=== PATIENT | male | born 1950 | race Caucasian/White ===

== ENCOUNTER 2017-11-16 19:28 | Emergency (ER) | payer OTHER ==
[~2017-11-16] VITALS: Ht 160 cm; Wt 72.2 kg
[2017-11-16 19:33] VITALS: TEMP 36.5; Ht 160 cm; Wt 72.2 kg
[2017-11-16 20:47] LABS: BASO % 0.1 %; BASO ABS # 0.01 K/uL (0-0.2); EOS % 0.1 %; EOS ABS # 0.01 K/uL (0-0.5); HEMATOCRIT 44.6 % (42-52); HEMOGLOBIN 15.7 g/dL (14.0-18.0); IG# 0.03 K/uL (0.00-0.02); LYMPH % 10.2 %; LYMPH ABS # 1.36 K/uL (1.2-3.4); MEAN CELL VOLUME 90.5 fL (80-100); MEAN CORPUSCULAR HEMOGLOBIN 31.8 pg (25-34); MEAN CORPUSCULAR HGB CONC 35.2 g/dl (32-36); MEAN PLATELET VOLUME 9.8 fL (7.4-10.4); MONO ABS # 0.54 K/uL (0.11-0.59); NEUT % 85.4 %; PLATELET COUNT 190 K/uL (130-400); RED CELL DISTRIBUTION WIDTH CV 12.3 % (11.5-14.5); WHITE BLOOD COUNT 13.35 K/uL (4.8-10.8)
[2017-11-16] MEDS ORDERED: ONDANSETRON INJ 2 MG/ML 2 ML VIAL IV STA ×2 (20:47→22:00)
[2017-11-16] MEDS ORDERED: MoRPHine SULFATE 10 MG/ML CARP/VIAL IV STA (20:47)
[2017-11-16 21:07] LABS: ALBUMIN 4.3 gm/dl (3.4-5.0); CALCIUM 9.3 mg/dl (8.5-10.1); CREATININE 1.09 mg/dl (0.60-1.40); POTASSIUM 3.9 mmol/L (3.5-5.1); TOTAL PROTEIN 7.8 gm/dl (6.4-8.2)
--- NOTE | 2017-11-16 21:20 | DIAGNOSTIC IMAGING REPORT ---
CT SCAN OF THE ABDOMEN AND PELVIS WITHOUT CONTRAST CLINICAL HISTORY: Right lower quadrant pain and hematuria COMPARISON STUDY: No previous studies for comparison. TECHNIQUE: CT scan of the abdomen and pelvis was performed from the lung bases to the proximal femurs. Images are reviewed in the axial, sagittal, and coronal planes. IV contrast was not administered for this examination. A dose lowering technique was utilized adhering to the principles of ALARA. CT DOSE: 891.13 mGy.cm FINDINGS: Lower chest: There is a partially visualized 3 mm right middle lobe pulmonary nodule. Liver: The unenhanced liver is normal in size, contour, and attenuation. There is no intrahepatic biliary ductal dilatation. Gallbladder: Surgically absent Spleen: Normal in size and attenuation. Pancreas: Unremarkable. Adrenal glands: Unremarkable. Kidneys: There is right-sided hydronephrosis and perinephric fluid suggestive of a forniceal rupture. There is right ureteral dilatation. There is a 2 mm calculus at the level of the right ureterovesical junction the bladder is relatively decompressed which explains its mildly thickened wall. Bowel: There are no transition zones indicate bowel obstruction. The appendix appears normal. Fluid-filled small bowel loops may reflect a mild ileus. There is no acute diverticulitis. Peritoneum: There is no intraperitoneal free air or abdominal ascites. Vasculature: The abdominal aorta is normal in course and caliber. Adenopathy: None. Pelvic viscera: The prostate is enlarged measuring 49 mm transversely. Skeletal structures: Degenerative changes are present within the SI joints. There are few tiny sclerotic lesions which likely represent bone islands. IMPRESSION: 1. 2 mm obstructing calculus at the level of the right ureterovesical junction. Electronically signed by: Vern Garland M.D. 11/16/2017 9:19 PM Dictated Date/Time: 11/16/2017 9:14 PM
--- NOTE | 2017-11-16 21:33 | EMERGENCY ROOM VISIT NOTE ---
ED Visit Note First contact with patient: 19:36 Staff note: I have reviewed the Patients chart and have discussed this case with my PA. I generally agree with the ED note and findings.
[2017-11-16] MEDS ORDERED: OXYCODONE IR HOME PACK PO ONE (21:45)
[2017-11-16] MEDS ORDERED: ONDANSETRON HOME PACK 4MG OD TAB PO ONE (21:45)
[2017-11-16] MEDS ORDERED: TAMSULOSIN HCL 0.4 MG CAP PO ONE (21:45)
[2017-11-16] MEDS ORDERED: ONDA4TAB10 SL (22:01)
[2017-11-16] MEDS ORDERED: TAMS0.4C38 PO (22:01)
[2017-11-16] MEDS ORDERED: OXYC1TAB3 PO (22:01)
--- NOTE | 2017-11-16 22:05 | EMERGENCY ROOM VISIT NOTE ---
History First contact with patient: 19:36 Chief Complaint: ABDOMINAL PAIN Stated Complaint: SHARP PAIN IN STOMACH Nursing Triage Summary: pt reported increasing pain in right lower quadrant starting around 1200 today. went to acute care and was sent here for evaluation of appendix. Pt reports nausea/vomiting. Denies any trouble urinating or moving his bowels. denies trauma. History of Present Illness The patient is a 67 year old male who presents to the Emergency Room with complaints of right lower quadrant abdominal pain which started approximately 7 hours ago. The patient states that he was sitting down at home when his pain started. He states it is a sharp pain in his right lower abdomen. He reports it has been painful to sit or lie down since it started. He rates the discomfort a 10/10 and states it is constant. He denies any pain in the back or radiation of the pain into the groin. He does note he had some mild burning when he gave his urine sample. He has been nauseous and did vomit up a small amount of bile. He denies any changes in his bowel movements, blood in his urine or fevers. He has taken 800 mg ibuprofen without relief of symptoms. He denies any history of similar episodes. He denies any history of kidney stones. Review of Systems A complete 10 point review of systems was reviewed with the patient with pertinent positives and negatives as per history of present illness. All else were negative. Past Medical/Surgical History Medical Problems: (1) Cardiac disease (2) COPD (chronic obstructive pulmonary disease) Surgical Problems: (1) History of cholecystectomy Social History Smoking Status: Current Every Day Smoker Marital Status: Housing Status: lives with family Current/Historical Medications Scheduled Ondasetron Odt (Zofran Odt), 4 MG SL Q6H Tamsulosin Hcl (Flomax), 0.4 MG PO DAILY Scheduled PRN Oxycodone Ir (Roxicodone Ir), 1-2 TAB PO Q4H PRN for Pain Physical Exam Vital Signs Date Time Temp Pulse Resp B/P (MAP) Pulse Ox O2 Delivery O2 Flow Rate FiO2 11/16/17 22:30 61 16 144/82 96 11/16/17 20:35 53 14 166/82 97 Room Air 11/16/17 19:33 36.5 48 20 156/84 98 Room Air Physical Exam VITALS: Vitals are noted on the nurse's note and reviewed by myself. GENERAL: This is a 67-year-old male, in no acute distress but uncomfortable appearing, well-developed well-nourished. SKIN: The skin was without rashes. MOUTH: Mucous membranes moist. NECK: Supple without nuchal rigidity. HEART: Regular rate and rhythm without murmurs gallops or rubs. LUNGS: Clear to auscultation bilaterally without wheezes, rales or rhonchi. ABDOMEN: Positive bowel sounds x 4. Soft, moderate tenderness in the right lower quadrant. No CVA tenderness. NEURO: Patient was alert and oriented to person place and time. Medical Decision & Procedures ER Provider Diagnostic Interpretation: CT SCAN OF THE ABDOMEN AND PELVIS WITHOUT CONTRAST FINDINGS: Lower chest: There is a partially visualized 3 mm right middle lobe pulmonary nodule. Liver: The unenhanced liver is normal in size, contour, and attenuation. There is no intrahepatic biliary ductal dilatation. Gallbladder: Surgically absent Spleen: Normal in size and attenuation. Pancreas: Unremarkable. Adrenal glands: Unremarkable. Kidneys: There is right-sided hydronephrosis and perinephric fluid suggestive of a forniceal rupture. There is right ureteral dilatation. There is a 2 mm calculus at the level of the right ureterovesical junction the bladder is relatively decompressed which explains its mildly thickened wall. Bowel: There are no transition zones indicate bowel obstruction. The appendix appears normal. Fluid-filled small bowel loops may reflect a mild ileus. There is no acute diverticulitis. Peritoneum: There is no intraperitoneal free air or abdominal ascites. Vasculature: The abdominal aorta is normal in course and caliber. Adenopathy: None. Pelvic viscera: The prostate is enlarged measuring 49 mm transversely. Skeletal structures: Degenerative changes are present within the SI joints. There are few tiny sclerotic lesions which likely represent bone islands. IMPRESSION: 1. 2 mm obstructing calculus at the level of the right ureterovesical junction. Laboratory Results 11/16/17 20:30 Red Blood Count 4.93, Mean Corpuscular Volume 90.5, Mean Corpuscular Hemoglobin 31.8, Mean Corpuscular Hemoglobin Concent 35.2, Mean Platelet Volume 9.8, Neutrophils (%) (Auto) 85.4, Lymphocytes (%) (Auto) 10.2, Monocytes (%) (Auto) 4.0, Eosinophils (%) (Auto) 0.1, Basophils (%) (Auto) 0.1, Neutrophils # (Auto) 11.40, Lymphocytes # (Auto) 1.36, Monocytes # (Auto) 0.54, Eosinophils # (Auto) 0.01, Basophils # (Auto) 0.01 11/16/17 20:30 Test 11/16/17 16:55 11/16/17 20:30 Urine Color YELLOW Urine Appearance CLEAR (CLEAR) Urine pH 5.0 (4.5-7.5) Urine Specific Rough And Ready 1.025 (1.000-1.030) Urine Protein TRACE (NEG) Urine Glucose (UA) NEG (NEG) Urine Ketones TRACE (NEG) Urine Occult Blood 3+ (NEG) Urine Nitrite NEG (NEG) Urine Bilirubin NEG (NEG) Urine Urobilinogen NEG (NEG) Urine Leukocyte Esterase NEG (NEG) Urine WBC (Auto) 1-5 /hpf (0-5) Urine RBC (Auto) 10-30 /hpf (0-4) Urine Hyaline Casts (Auto) 0 /lpf (0-5) Urine Epithelial Cells (Auto) 0-5 /lpf (0-5) Urine Bacteria (Auto) NEG (NEG) Urine Crystals CALCIUM OXALATE (NONE White Blood Count 13.35 K/uL (4.8-10.8) Red Blood Count 4.93 M/uL (4.7-6.1) Hemoglobin 15.7 g/dL (14.0-18.0) Hematocrit 44.6 % (42-52) Mean Corpuscular Volume 90.5 fL (80-100) Mean Corpuscular Hemoglobin 31.8 pg (25-34) Mean Corpuscular Hemoglobin Concent 35.2 g/dl (32-36) Platelet Count 190 K/uL (130-400) Mean Platelet Volume 9.8 fL (7.4-10.4) Neutrophils (%) (Auto) 85.4 % Lymphocytes (%) (Auto) 10.2 % Monocytes (%) (Auto) 4.0 % Eosinophils (%) (Auto) 0.1 % Basophils (%) (Auto) 0.1 % Neutrophils # (Auto) 11.40 K/uL (1.4-6.5) Lymphocytes # (Auto) 1.36 K/uL (1.2-3.4) Monocytes # (Auto) 0.54 K/uL (0.11-0.59) Eosinophils # (Auto) 0.01 K/uL (0-0.5) Basophils # (Auto) 0.01 K/uL (0-0.2) RDW Standard Deviation 41.0 fL (36.4-46.3) RDW Coefficient of Variation 12.3 % (11.5-14.5) Immature Granulocyte % (Auto) 0.2 % Immature Granulocyte # (Auto) 0.03 K/uL (0.00-0.02) Anion Gap 7.0 mmol/L (3-11) Est Creatinine Clear Calc Drug Dose 58.6 ml/min Estimated GFR () 81.0 Estimated GFR (Non- 69.9 BUN/Creatinine Ratio 16.1 (10-20) Calcium Level 9.3 mg/dl (8.5-10.1) Total Bilirubin 0.6 mg/dl (0.2-1) Aspartate Amino Transf (AST/SGOT) 24 U/L (15-37) Alanine Aminotransferase (ALT/SGPT) 23 U/L (12-78) Alkaline Phosphatase 68 U/L (45-117) Total Protein 7.8 gm/dl (6.4-8.2) Albumin 4.3 gm/dl (3.4-5.0) Globulin 3.5 gm/dl (2.5-4.0) Albumin/Globulin Ratio 1.2 (0.9-2) Medications Administered Medications (Trade) Dose Ordered Sig/Ascencion Route Start Time Stop Time Status Last Admin Dose Admin Morphine Sulfate (MoRPHine SULFATE INJ) 6 mg NOW STAT IV 11/16/17 20:47 11/16/17 20:48 DC 11/16/17 20:54 6 MG Ondansetron HCl (Zofran Inj) 4 mg NOW STAT IV 11/16/17 20:47 11/16/17 20:48 DC 11/16/17 20:53 4 MG Ondansetron HCl (ZOFRAN ODT 4MG Home Pack) 1 homepack UD ONCE PO 11/16/17 21:45 11/16/17 21:46 DC 11/16/17 22:23 1 HOMEPACK Oxycodone HCl (Roxicodone Immediate Rel 5MG Home Pack) 1 homepack UD ONCE PO 11/16/17 21:45 11/16/17 21:46 DC 11/16/17 22:23 1 HOMEPACK Tamsulosin HCl (Flomax Cap) 0.4 mg NOW ONCE PO 11/16/17 21:45 11/16/17 21:46 DC 11/16/17 22:22 0.4 MG Ondansetron HCl (Zofran Inj) 4 mg NOW STAT IV 11/16/17 22:00 11/16/17 22:01 DC 11/16/17 22:22 4 MG ED Course The patient was evaluated as above. Labs were drawn and IV access was obtained. Patient was medicated with 6 mg's morphine IV and [address] of the abdomen and pelvis was performed and read by radiology as above. Case was discussed with Dr. White due to the forniceal rupture. He states that this is not concerning the patient can follow-up in the office. Patient was reevaluated and treatment plan discussed. The patient states he is feeling much better but is slightly nauseous and requested an additional dose of Zofran. 4 mg Zofran was ordered. Home packs were ordered. Discharge instructions were reviewed with the patient. The patient verbalized understanding of my assessment and treatment plan and was discharged home in good condition. Medical Decision Differential diagnosis includes kidney stone, pyelonephritis, appendicitis, musculoskeletal pain, diverticulitis, bowel obstruction, among others. The patient is a 67-year-old male who presents today complaining of right lower quadrant abdominal pain. Labs revealed mild leukocytosis of 13,000, possibly secondary to stress/pain. BUN and creatinine were within normal limits. Urinalysis showed 3+ blood and was not indicative of infection. CT showed a 2 mm stone in the UVJ. This also did show perinephric stranding and evidence of forniceal rupture. I did discuss the case with urology due to this finding. They state that this finding is not emergent and the patient can follow-up in the office. Patient was given prescriptions for OxyIR, Zofran and Flomax. The patient was independently evaluated by Dr. Layne, ED attending physician, who agreed with my assessment and treatment plan. Based on the patient's presentation and work up, I feel the patient is stable for outpatient treatment. The patient was educated to return to the emergency department for any worsening of their current condition or new/concerning symptoms. He will follow up with urology. [place] Drug Monitoring Program Search Results: patient reviewed within database Medication Reconcilliation Current Medication List: was personally reviewed by me Blood Pressure Screening Patient's blood pressure: Elevated blood pressure Blood pressure disposition: Elevated BP felt to be situational Impression Primary Impression: Kidney stone Departure Information Dispostion Home / Self-Care Condition GOOD Prescriptions Tamsulosin Hcl (FLOMAX) 0.4 Mg Cap 0.4 MG PO DAILY for 10 Days, #10 CAP Prov: Esperanza Freed PA-C 11/16/17 Ondasetron Odt (ZOFRAN ODT) 4 Mg Tab 4 MG SL Q6H for Nausea, #15 TAB Prov: Esperanza Freed PA-C 11/16/17 Oxycodone Ir (Roxicodone Ir) 5 Mg Tab 1-2 TAB PO Q4H Y for Pain, #20 TAB For Initial Treatment Prov: Esperanza Freed PA-C 11/16/17 Referrals Lemuel Mcguire D.O. (PCP) Tommie White M.D. Patient Instructions My [facility] Additional Instructions You have been treated in the Emergency Department today for a Kidney Stone ( Nephrolithiasis). You have received pain medicine in the emergency department which impairs your ability to operate a vehicle. It is illegal for you to drive after receiving these medicines. You have been prescribed OxyIR to be used for pain control. This is a narcotic medication. You cannot drive or consume alcohol while on this medicine. This medicine should only be used for pain that cannot be controlled with over-the- counter pain medicines. You have been prescribed Zofran to be used for any nausea or vomiting. Take as prescribed. You have been prescribed Flomax 0.4 mg to be taken ONCE daily. This medicine has been prescribed as it can help relax the smooth muscles of the urinary tract increasing transit time of the kidney stone. For pain control, you can use the following [id number] medicines (if >12 yo): - Regular strength (325mg/tab) Tylenol (acetaminophen) 2 tabs every 4-6 hours as needed. Do not exceed 12 tablets in a 24 hour period. Avoid taking more than 4 grams (4000 mg) of Tylenol per day. This includes any other sources of acetaminophen you may take on a regular basis. - Regular strength (200 mg/tab) Advil (ibuprofen) 1-2 tabs every 4-6 hours as needed. Do not exceed a dose of 3200 mg per day. You have been provided a strainer and specimen collection cup. You should strain your urine to collect any passed stones. Your stones can be placed into the specimen cup and taken to your Urologist for further evaluation. You have been provided the contact information for the on-call Urologist. You should contact the Urologist's office tomorrow to establish a follow-up appointment from today's Emergency Department visit. Return to the Emergency Department if your symptoms persist despite the treatment plan outlined above or if you develop the following symptoms: intractable pain, fever, chills, or large amounts of blood in your urine.
[2017-11-16 22:30] VITALS: BP 144/82; PULSE 61; O2SAT 96
== END 2017-11-16 22:35 | disposition home or self-care (01) ==
LOC: C.EDB 19:31 → C.EDC 22:35
DX: N20.0 Calculus of kidney (principal); I51.9 Heart disease, unspecified; J44.9 Chronic obstructive pulmonary disease, unspecified; F17.210 Nicotine dependence, cigarettes, uncomplicated

== ENCOUNTER 2020-07-29 06:11 | Inpatient (IN) ==
--- NOTE | 2020-07-21 16:25 | Anesthesiology Consultation ---
Date of Service July 21, 2020 Assessment & Plan (1) Encounter for pre-operative examination: Case was scheduled for 07/13/20, and patient seen in PAT by Winnie Laboy on 06/27/20. Due to COVID-19 surge capacity protocols, case canceled and R/S with new V#. At time of cancelation, chart was pending surgeon-ordered PCP and cardiology clearances. Will need to obtain notes. COVID Status: As of 07/21 nurse assessment, patient denies travel to endemic area, known exposure/sick contacts, or symptoms of COVID19. Preoperative COVID19 testing to be completed on 07/22. Chart Review Chart Review: Acceptable Risk for Surgery (pending surgeon ordered cardio and pcp clearances) History Surgery Operation Date: 07/29/20 09:20 Proposed Procedures p L4-S1 Decompression and Fusion, Spinal Cord Monitoring - Melecio Bruno, Height/Weight Height: 5 ft 3 in Weight: 72.575 kg Allergies Allergy/AdvReac Type Severity Reaction Status Date / Time No Known Allergies Allergy Verified 07/21/20 14:48 Medications Home Medications Medication Instructions Recorded Confirmed Last Taken albuterol sulfate 0.63 mg INHALATION Q4H PRN 06/10/20 07/21/20 Unknown ascorbic acid (vitamin C) [Vitamin 500 mg PO BID 06/10/20 07/21/20 Unknown C] aspirin [Aspir-81] 81 mg PO QAM 06/10/20 07/21/20 Unknown carvedilol 3.125 mg PO BID 06/10/20 07/21/20 Unknown clopidogrel 75 mg PO QAM 06/10/20 07/21/20 Unknown fluticasone propion-salmeterol 1 inh INHALATION BID 06/10/20 07/21/20 Unknown [Wixela Inhub] losartan 100 mg PO QAM 06/10/20 07/21/20 Unknown pantoprazole 20 mg PO QAM 06/10/20 07/21/20 Unknown simvastatin 80 mg PO PM 06/10/20 07/21/20 Unknown Past Medical History Medical History (Updated 07/21/20 @ 16:15 by Ravi Apodaca) CAD (coronary artery disease) 2008 to LAD COPD (chronic obstructive pulmonary disease) Breathing stable and controlled DDD (degenerative disc disease) GERD (gastroesophageal reflux disease) diet controlled Heme + stool Reports recent heme + stool sample for pcp -- was to follow up with PCP on 06/30, unsure if done. History of cardiac murmur as a child No murmur noted at PAT appt 06/27 HTN (hypertension) Hyperlipemia Spinal stenosis Past Family History Family History Other No family history of adverse response to anesthesia Past Surgical History Surgical History H/O heart artery stent x 1 (2008) History of cardiac catheterization 2008 [facility] - - 1 stent placed - follows with Dr. Wilkins 2013 - [facility] - no stents/angioplasty History of carpal tunnel release of both wrists History of cholecystectomy History of colonoscopy History of esophagogastroduodenoscopy (EGD) Social History Smoking Status: Current every day smoker tobacco type: cigarettes Smoking cigarettes per day: 3-4 cigs per day Do You Dip or Chew Tobacco: No Hx Alcohol Use: Yes Alcohol type: beer alcohol intake frequency: a few times a month Hx Substance Use: No substance use type: does not use Testing Laboratory Results 06/27/20 WBC: 7.43 H/H: 14.5/43.6 PLATELETS: 208 SODIUM: 142 POTASSIUM: 5.0 CHLORIDE: 111 CO2: 29 BUN: 13 CREATININE: 0.75 GLUCOSE: 100 PT: 10.1 PTT: 27.1 INR: 1.0 UA: 3+ occult blood, 10-30 RBC/hpf, + calcium oxalate crystals (patient to see PCP for clearance, will fax results for their review) TYPE AND SCREEN: A+, antibody negative Electrocardiogram Date: 06/27/20 Findings: + NSR @ (62bpm) Chest X-Ray Date: 06/27/20 Findings: + NAD Other Testing Echocardiogram Date: 11/10/18 EF: 55% LV Function: normal RWMA: + none Dense sclerotic changes involving both aortic and mitral valve leaflets. Trace to mild MR and TR. Stress Test Date: 12/23/19 Type: nuclear Normal myocardial perfusion SPECT images without evidence for pharmacologically induced ischemia. Normal left ventricular wall motion and thickening. Normal left ventricular ejection fraction of post-stress at 57%.
[~2020-07-29 06:11] MED LIST: ACETAMINOPHEN 500 MG TAB PO SCH; CeleBREX 200 MG CAP PO SCH; GABAPENTIN 300 MG CAP PO SCH; LR 15ML/HR IV SCH; ceFAZolin 1000MG 1,000 MG/7.5 ML SYR IV SCH
[2020-07-29] MEDS ORDERED: ONDANSETRON INJ 2 MG/ML 2 ML VIAL IV PRN ×2 (07:04→11:30)
[2020-07-29] MEDS ORDERED: ATROPINE SULFATE 0.1 MG/ML 10ML SYR IV PRN (07:04)
[2020-07-29] MEDS ORDERED: fentaNYL citrate 100 MCG/2 ML VIAL IV PRN (07:04)
[2020-07-29] MEDS ORDERED: ePHEDrine sulfate 50 MG/ML AMP IV PRN (07:04)
[2020-07-29] MEDS ORDERED: BACITRACIN INJ 50,000 UNIT VIAL ONE (07:11)
[2020-07-29] MEDS ORDERED: BUPIVACAINE/EPINEPHRINE 0.5% MPF 1:200,000 30 ML VIAL ONE (07:11)
[2020-07-29] MEDS ORDERED: MIDAZOLAM HCL 1 MG/ML 2ML VIAL ONE (07:12)
[2020-07-29] MEDS ORDERED: PROPOFOL IV EMULSION 10 MG/ML 20 ML VIAL IV ONE (07:12)
[2020-07-29] MEDS ORDERED: ONDANSETRON INJ 2 MG/ML 2 ML VIAL ONE ×2 (07:12→10:16)
[2020-07-29] MEDS ORDERED: LIDOCAINE HCL 2% 2 ML VIAL/AMP(20MG/ML) INFIL ONE (07:12)
[2020-07-29] MEDS ORDERED: fentaNYL citrate 100 MCG/2 ML VIAL ONE ×2 (07:12→09:18)
--- NOTE | 2020-07-29 07:27 | History & Physical Bridge Note ---
Date of Service July 29, 2020 History & Physical Bridge Note I have examined the patient, reviewed the History & Physical and in the interval since the performance of the History & Physical I have noted the following changes of clinical significance: no changes noted
--- NOTE | 2020-07-29 07:28 | History & Physical Report ---
Date of Service July 29, 2020 Assessment & Plan (1) Neurogenic claudication due to lumbar spinal stenosis: Admission and Anticipated Discharge Date Admission Date: L4-S1 decompression fusion History of Present Illness Chief Complaint: Back and leg pain Primary Care Provider: Lemuel Mcguire DO This is a 70-year-old male presents with chronic persistent back and leg pain. After failing course of nonoperative care is here for surgical invention. Allergies Allergy/AdvReac Type Severity Reaction Status Date / Time No Known Allergies Allergy Verified 07/29/20 06:41 Home Medications Medication Instructions Recorded Confirmed Type albuterol sulfate 0.63 mg INHALATION Q4H PRN 06/10/20 07/29/20 History ascorbic acid (vitamin C) [Vitamin 500 mg PO BID 06/10/20 07/29/20 History C] aspirin [Aspir-81] 81 mg PO QAM 06/10/20 07/29/20 History carvedilol 3.125 mg PO BID 06/10/20 07/29/20 History clopidogrel [Plavix] 75 mg PO QAM 06/10/20 07/29/20 History fluticasone propion-salmeterol 1 inh INHALATION BID 06/10/20 07/29/20 History [Wixela Inhub] losartan 100 mg PO QAM 06/10/20 07/29/20 History pantoprazole 20 mg PO QAM 06/10/20 07/29/20 History simvastatin 80 mg PO PM 06/10/20 07/29/20 History Past Med/Surg History Medical History (Updated 07/29/20 @ 07:28 by Melecio Bruno DO) CAD (coronary artery disease) 2008 to COPD (chronic obstructive pulmonary disease) Breathing stable and controlled DDD (degenerative disc disease) GERD (gastroesophageal reflux disease) diet controlled Heme + stool Reports recent heme + stool sample for pcp -- was to follow up with PCP on 06/30, unsure if done. History of cardiac murmur as a child No murmur noted at PAT appt 06/27 HTN (hypertension) Hyperlipemia Spinal stenosis Surgical History H/O heart artery stent x 1 (2008) History of cardiac catheterization 2008 [facility] - - 1 stent placed - follows with Dr. Wilkins 2013 - [facility] - CP - no stents/angioplasty History of carpal tunnel release of both wrists History of cholecystectomy History of colonoscopy History of esophagogastroduodenoscopy (EGD) Family History Other No family history of adverse response to anesthesia Social History Smoking Status: Current every day smoker Cigarettes Per Day: 3-4 cigs per day; Second Hand Exposure: No; Do You Dip or Chew Tobacco: No; Tobacco Cessation Education Requested by Patient: No Hx Alcohol Use: Yes Alcohol type: beer Hx Substance Use: No Preferred Language: Frisian Communication Ability: Effective 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
[2020-07-29] MEDS ORDERED: ROCURONIUM BROMIDE 10 MG/ML 5 ML VIAL IV ONE ×2 (08:08→09:15)
[2020-07-29] MEDS ORDERED: DEXAMETHASONE SOD INJ 4 MG/ML VIAL ONE (09:11)
[2020-07-29] MEDS ORDERED: GLYCOPYRROLATE 0.2 MG/ML VIAL ONE (09:23)
[2020-07-29] MEDS ORDERED: NEOSTIGMINE METHYLSULFATE 1 MG/ML 10ML VIAL ONE (09:23)
[2020-07-29] MEDS ORDERED: FLOSEAL HEMOSTATIC MATRIX 10ML TOP ONE (10:07)
--- NOTE | 2020-07-29 10:12 | Operative Report ---
Post Operative Report Pre & Post Diagnosis Operation Date: 07/29/20 07:45 Pre-Op Diagnosis: Thoracolumbar and Lumbosacral Disc Disorder L4-S1 Post-Op Diagnosis: Thoracolumbar and Lumbosacral Disc Disorder L4-S1 I identified the patient and participated in the time-out.: Yes Procedure Operation Date: 07/29/20 07:45 Actual Procedures #1 lumbar decompression with bilateral medial facetectomies and foraminotomies L3-4, L4-5 and L5-S1. #2 posterior spinal fusion L4-5 L5-S1. #3 placement posterior instrumentation L4-5 L5-S1. #4 interbody fusion L4-5 and L5-S1. #5 placement peek cage 9 x 26 mm at L4-5 and L5-S1. #6 placement of locally harvested morselized autograft in the posterior lateral gutters. #7 placement infuse collagen sponge, master graft in the posterior lateral gutters and osteopenic body space. Surgeon Melecio Bruno, Heavy Forger Helper Sandor Lemus Estimated Blood Loss 200 Findings Consistent with Post-Op Diagnosis Specimens None Indications This is a 70-year-old male who presents with above-mentioned diagnosis after failing course of nonoperative care is here for the above-mentioned seizure. Description of Procedure Patient was met with identified informed consent obtained. Patient was then taken to the operative suite underwent intubation placed in a prone position the Rashi table on top Nacho frame. All bony prominences well-padded eyes inspected to ensure no external pressure placed upon the. This point the lumbar spine was prepped and draped in normal sterile fashion. Sharp dissection with the assistance of Bovie cautery was performed down to and exposing the lamina transverse processes of L4-L5 and sacral ala bilaterally. From a caudal cephalad fashion going up the L5 laminectomy of L4 and partial laminectomy of L3 was performed including bilateral medial facetectomies and foraminotomies addressing severe spinal stenosis. I found far lateral disc herniation at L4-5 on the right as well. After complete decompression pedicle screws were then placed in L4 and L5 and S1 levels bilaterally with assistance of fluoroscopy and appropriate size tha placed. By way of a transforamen approach on the right complete discectomy L5-S1 was performed endplates curetted to subcortical bleeding bone and 9 x 26 mm peek cage filled with osteobone graft tapped in position. Then proceeded to L [address] of a transforaminal approach on the right a complete discectomy was performed endplates curetted to subcortical being bone and a 9 x 26 mm peek cage filled with osteobone graft tapped in position. The rods were then locked in final position bilaterally. Transverse processes of L4-L5 and sacral ala burred to subcortical bleeding bone. Infuse collagen sponge master graft local autograft was placed in the posterior lateral gutters. 15 round LUCY drain inserted. The incision was then closed with 1 Vicryl in the fascia 2-0 Vicryl subcutaneously and 4 Monocryl for final skin closure. Steri-Strip sterile dressings placed. Patient waken taken to PACU stable condition. Please note spinal cord monitoring was utilized at the procedure no changes noted. Lastly Sandor Lemus was present at the entire surgery involved the patient positioning complex portions of the surgery and final skin closure. I attest to the content of the Intraoperative Record and any orders documented therein. Any exceptions are noted below.
--- NOTE | 2020-07-29 11:16 | Fluoroscopy Report ---
INTRAOPERATIVE RADIOGRAPHS CLINICAL HISTORY: L4-S1 spinal fusion. Fluoroscopy time: 22 seconds. FINDINGS: 2 spot fluoroscopic views of the lumbar spine are presented. There has been discectomy at L 4-L5 and L5-S1 with laminectomy and posterior fusion from L4-S1. Interpedicular screws are present at all levels. The orthopedic hardware appears intact. IMPRESSION: Intraoperative images from L4-S1 spinal fusion as above. Electronically signed by: Epsinoza Martinez M.D. 07/29/2020 11:15 AM
[2020-07-29] MEDS ORDERED: ACETAMINOPHEN 1,000 MG/100 ML VIAL IV PRN (11:30)
[2020-07-29] MEDS ORDERED: hydrOXYzine HCl 25 MG TAB PO PRN (11:30)
[2020-07-29] MEDS ORDERED: ALUMINUM/MAGNESIUM SUSP 30 ML UDC PO PRN (11:30)
[2020-07-29] MEDS ORDERED: LORazepam 0.5 MG TAB PO PRN (11:30)
[2020-07-29] MEDS ORDERED: PROMETHAZINE HCL 12.5 MG in SODIUM CHLORIDE 0.9% 50 ML IV PRN (11:30)
[2020-07-29] MEDS ORDERED: DO NOT ADMINISTER PNEUMOCOCCAL VACCINE PRN (11:30)
[2020-07-29] MEDS ORDERED: HYDROmorphone INJ 0.5 MG/0.5 ML SYR IV PRN (11:30)
[2020-07-29] MEDS ORDERED: diphenhydrAMINE Capsule 25 MG CAP PO PRN (11:30)
[2020-07-29] MEDS ORDERED: DO NOT ADMINISTER FLU VACCINE PRN (11:30)
[2020-07-29] MEDS ORDERED: oxyCODONE HCL IR 5 MG TAB (IMMEDIATE RELEASE) PO PRN (11:30)
[2020-07-29] MEDS ORDERED: METOCLOPRAMIDE HCL INJ 5 MG/ML 2 ML VIAL IV PRN (11:30)
[2020-07-29] MEDS ORDERED: HYDROmorphone INJ 1 MG/ML SYRINGE IV PRN (11:30)
[2020-07-29] MEDS ORDERED: SOD PHOSPHATE/SOD BIPHOSPHATE ENEMA 132 ML BTL PR PRN (11:30)
[2020-07-29] MEDS ORDERED: ONDANSETRON 4 MG OD TAB PO PRN (11:30)
[2020-07-29] MEDS ORDERED: FAMOTIDINE 20 MG TAB PO PRN (11:30)
[2020-07-29] MEDS ORDERED: MAGNESIUM HYDROXIDE SUSP 30 ML UDC PO PRN (11:30)
[2020-07-29] MEDS ORDERED: NALOXONE HCL 0.4 MG/1 ML VIAL/CARP IV PRN (11:30)
[2020-07-29] MEDS ORDERED: bisacodyL 10 MG SUPP PR PRN (11:30)
[2020-07-29] MEDS ORDERED: LORazepam 0.5 MG/1 ML VIAL IV PRN (11:30)
--- NOTE | 2020-07-29 11:30 | Anesthesiology Progress Note ---
Date of Service July 29, 2020 Anesthesia Post Procedure Vital Signs Vital Signs: Temp Pulse Pulse Resp BP Pulse Ox 07/29/20 11:15 97.2 F L 61 15 118/68 98 07/29/20 11:05 58 L 14 103/72 96 07/29/20 10:55 57 L 15 105/65 94 07/29/20 10:45 61 16 118/78 96 07/29/20 10:35 97.2 F L 74 18 131/79 97 07/29/20 06:51 98.1 F 83 20 162/91 H 97 Pain Intensity Back: Pain Intensity: 4 Transfer of Care Handoff Completed per policy Notes Mental Status: alert / awake / arousable and participated in evaluation Patient Amnestic to Procedure: Yes Nausea / Vomiting: adequately controlled Pain: adequately controlled Airway Patency, RR, SpO2: stable & adequate BP & HR: stable & adequate Hydration State: stable & adequate Anesthetic Complications: no major complications apparent and Pt Satisfied with anesthetic care
[2020-07-29] MEDS ORDERED: ALBUTEROL 0.083% NEBU SOLN 3 ML VIAL INH PRN (11:43)
[2020-07-29] MEDS: SODIUM CHLORIDE 0.9% 1000ML 1,000 ML IV SCH ×2 (11:58→21:55)
--- NOTE | 2020-07-29 14:31 | Consultation ---
Date of Consultation July 29, 2020 Assessment & Plan (1) Status post lumbar surgery: Post op day# 0 S/P L4-S1 decompression and fusion by Dr Bruno EBL#200ml -pain management per ortho -wound management per ortho -PT/OT as appropriate -DVT prophylaxis per ortho -incentive spirometry -monitor H&H for acute blood loss anemia (2) CAD (coronary artery disease): S/P Stent to LAD in 2008 H/O negative stress test 11/2019 -No CP -Plavix on hold per ortho spine -Continue aspirin, carvedilol, statin (3) COPD (chronic obstructive pulmonary disease): Wheezing on exam. Pt reports baseline wheezing and denies SOB at this time. Pt reports using scheduled albuterol nebs TID and more often as needed, but hasn't felt need for as needed treatments recently -Continue scheduled albuterol nebs and prn -Continue home inhaler (4) HTN (hypertension): -Continue carvedilol, losartan (5) GERD (gastroesophageal reflux disease): -Continue PPI (6) Tobacco use: -Smoking cessation encouraged -Nicotine patch DVT Prophylaxis -SCDs per ortho Disposition per primary service Follows with Dr Mcguire in [place] for routine care Pt was seen and care coordinated with Dr Pollard. See addendum Supervising Physician Co-Signing Physician Notes Patient is a 70-year-old male with history of coronary artery disease, COPD, GERD, tobacco use and other medical problems was seen and examined after having lumbar decompression fusion surgery by Dr. Bruno. Patient is doing well postop. He denies any chest pain, shortness of breath, dizziness, nausea, abdominal pain. Back pain at surgical site is controlled. On exam patient is moderately built and nourished, no apparent distress, normocephalic atraumatic, lungs--decreased breath sounds, scattered wheezes, S1-S2, no murmur, no pedal edema, abdomen soft, nontender, back--surgical site in dressing,+ drain, alert, awake, oriented, grossly no focal deficits. Patient is consulted for postop medical management. Monitor for postop blood loss anemia with daily CBC. Continue bowel regimen to prevent constipation. Local wound care, DVT prophylaxis, pain control as per primary team. Resume Plavix as able once cleared by orthopedics. Respiratory status seems to be at baseline currently. Counseled to quit smoking. I personally reviewed the record. Patient is interviewed and examined at bedside. Patient's care is coordinated with Jennyfer Bray PA-C. Please refer to the documentation above for details of patient's presentation and for discussion of other issues. History of Present Illness Requesting Physician: Dr Bruno Reason for Consultation: Post op medical management Attending Physician: Melecio Bruno, DO History of Present Illness Pt is 70 y/o M with PMH CAD s/p stent LAD in 2008, HTN, HLD, COPD, GERD, tobacco use seen in medical consultation s/p L4 S1 decompression fusion today by Dr. Bruno. Postop patient reports doing well and reports has minimal pain. Denies any lower extremity pain or paresthesias. Patient reports has wheezing at baseline. He feels his breathing is currently "good" and is at his baseline. Has Aguirre cath in place. Denies fever/chills, diaphoresis, N/V/D/C, BEEBE, dizziness, syncope, vision changes, neck pain, CP, SOB, palpitations, cough, sore throat, choking, rhinorrhea, abdominal pain, paresthesias, extremity edema, rashes, urinary symptoms. Allergies Allergy/AdvReac Type Severity Reaction Status Date / Time No Known Allergies Allergy Verified 07/29/20 06:41 Home Medications Medication Instructions Recorded Confirmed Type albuterol sulfate 0.63 mg INHALATION Q4H PRN 06/10/20 07/29/20 History ascorbic acid (vitamin C) [Vitamin 500 mg PO BID 06/10/20 07/29/20 History C] aspirin [Aspir-81] 81 mg PO QAM 06/10/20 07/29/20 History carvedilol 3.125 mg PO BID 06/10/20 07/29/20 History clopidogrel [Plavix] 75 mg PO QAM 06/10/20 07/29/20 History fluticasone propion-salmeterol 1 inh INHALATION BID 06/10/20 07/29/20 History [Wixela Inhub] losartan 100 mg PO QAM 06/10/20 07/29/20 History pantoprazole 20 mg PO QAM 06/10/20 07/29/20 History simvastatin 80 mg PO PM 06/10/20 07/29/20 History Patient History Medical History CAD (coronary artery disease) 2009 to LAD COPD (chronic obstructive pulmonary disease) Breathing stable and controlled DDD (degenerative disc disease) GERD (gastroesophageal reflux disease) diet controlled Heme + stool Reports recent heme + stool sample for pcp -- was to follow up with PCP on 06/30, unsure if done. History of cardiac murmur as a child No murmur noted at PAT appt 06/27 HTN (hypertension) Hyperlipemia Spinal stenosis Tobacco use Surgical History (Updated 07/29/20 @ 14:38 by Jennyfer Bray PA-C) H/O heart artery stent x 1 (2008) History of cardiac catheterization 2008 [facility] - - 1 stent placed - follows with Dr. Wilkins 2013 - [facility] - no stents/angioplasty History of carpal tunnel release of both wrists History of cholecystectomy History of colonoscopy History of esophagogastroduodenoscopy (EGD) Family History Other No family history of adverse response to anesthesia Social History Smoking Status: Current every day smoker Cigarettes Per Day: 3-4 cigs per day; Second Hand Exposure: No; Do You Dip or Chew Tobacco: No; Tobacco Cessation Education Requested by Patient: No Hx Alcohol Use: Yes Alcohol type: beer Hx Substance Use: No Preferred Language: Thai Communication Ability: Effective Utility Tech Required: No Beliefs That Will Affect Care: None Current Living Situation: Spouse Other Information That Helps Us Care for You: No Feels Safe at Home: Yes Safety Concerns: Feels Safe At This Time Assistive Devices: Denture - Upper, Denture - Lower and Glasses Review of Systems Review of Systems: All systems reviewed & are unremarkable except as noted in HPI & below Physical Exam Physical Exam: General: no distress, WDWN Head: normocephalic, atraumatic Eyes: conjunctiva non-injected, anicteric ENT: normal inspection external ears, nose, mucous membranes moist Neck: supple, trachea midline Lungs: +scattered wheezing throughout, no respiratory distress, no rhonchi/rales CV: RRR, no pretibial edema Abd: normal BS, soft, non-tender Back: surgical dressing in place is dry, +LUCY drain with serosanguineous drainage Ext: no cyanosis, no calf tenderness; bilateral pedal pushes and pulls intact Neuro: A&O x 3, no focal deficits noted, normal affect Skin: warm, dry Results & Data ([facility]) Vital Signs (Past 12 Hours) Vital Signs Temp Pulse Pulse Resp BP Pulse Ox 07/29/20 13:23 36.6 C 74 14 130/68 98 07/29/20 12:35 37.1 C 64 18 117/73 94 07/29/20 12:00 37.1 C 67 18 117/78 95 07/29/20 11:35 36.5 C 66 16 134/84 95 07/29/20 11:15 36.2 C L 61 15 118/68 98 07/29/20 11:05 58 L 14 103/72 96 07/29/20 10:55 57 L 15 105/65 94 07/29/20 10:45 61 16 118/78 96 07/29/20 10:35 36.2 C L 74 18 131/79 97 07/29/20 06:51 36.7 C 83 20 162/91 H 97
[2020-07-29] MEDS: ceFAZolin 2000MG 2,000 MG/15 ML SYR IV SCH ×2 (15:56→21:55)
[2020-07-29] MEDS: NICOTINE 7 MG/24 HR TDSY TD SCH (15:56)
[2020-07-29] MEDS: ALBUTEROL 0.083% NEBU SOLN 3 ML VIAL NEB SCH (18:26)
[2020-07-29] MEDS: ASCORBIC ACID 500 MG TAB PO SCH (20:27)
[2020-07-29] MEDS: carvediloL 3.125 MG TAB PO SCH (20:27)
[2020-07-29] MEDS: DOCUSATE SODIUM/SENNA 50/8.6MG TAB PO SCH (20:27)
[2020-07-29] MEDS: SIMVASTATIN 80 MG TAB PO SCH (20:27)
[2020-07-29] MEDS: traMADol HCL 50 MG TABLET PO PRN (22:31)
[2020-07-30] MEDS: ALBUTEROL 0.083% NEBU SOLN 3 ML VIAL NEB SCH ×5 (00:45→19:06)
[2020-07-30] MEDS: traMADol HCL 50 MG TABLET PO PRN (05:27)
[2020-07-30] MEDS: POLYETHYLENE (MIRALAX) 17 GM PACK PO SCH ×5 (05:28→19:58)
[2020-07-30 05:55] LABS: Hematocrit (blood only) 31.3 % (42-52); Hemoglobin 10.6 g/dL (14.0-18.0); Immature Granulocytes # (auto) 0.04 K/uL (0.00-0.02); Immature Granulocytes % (auto) 0.3 %; Lymphocytes % (auto) 12.7 %; Mean Corpuscular Hemoglobin 31.4 pg (25-34); Mean Corpuscular Hgb Conc 33.9 g/dL (32-36); Mean Corpuscular Volume 92.6 fL (80-100); Mean Platelet Volume 9.9 fL (7.4-10.4); Monocytes # (auto) 1.11 K/uL (0.11-0.59); Monocytes % (auto) 7.9 %; Neutrophils # (auto) 11.19 K/uL (1.4-6.5); Neutrophils % (auto) 79.1 %; Platelet Count 211 K/uL (130-400); RDW Coefficient of Variation 11.9 % (11.5-14.5); RDW Standard Deviation 40.3 fL (36.4-46.3); Red Blood Count 3.38 M/uL (4.7-6.1); White Blood Count 14.14 K/uL (4.8-10.8)
[2020-07-30 06:25] LABS: BUN Creatinine Ratio 15.5 (10-20); Creatinine Clr Calc Pharmacy 67.5 ml/min; Est GFR (African American) 98.6; Est GFR (Non-African American) 85.1; Potassium 4.6 mmol/L (3.5-5.1)
[2020-07-30] MEDS: ASPIRIN 81 MG ECTAB PO SCH (07:41)
[2020-07-30] MEDS: NICOTINE 7 MG/24 HR TDSY TD SCH (07:41)
[2020-07-30] MEDS: ACETAMINOPHEN 500 MG TAB PO PRN ×2 (07:41→17:04)
[2020-07-30] MEDS: PANTOprazole 40 MG TAB PO SCH (07:42)
[2020-07-30] MEDS: carvediloL 3.125 MG TAB PO SCH ×2 (07:57→19:58)
[2020-07-30] MEDS: ASCORBIC ACID 500 MG TAB PO SCH ×2 (07:57→19:58)
[2020-07-30] MEDS: LOSARTAN POTASSIUM 50 MG TAB PO SCH (07:58)
[2020-07-30] MEDS: FLUTICASONE/VILANTEROL 100/25MCG 14 PUFFS/INHALER INH SCH (07:58)
--- NOTE | 2020-07-30 10:07 | Orthopedic Progress Note ---
Date of Service July 30, 2020 Assessment & Plan (1) Neurogenic claudication due to lumbar spinal stenosis: Admission and Anticipated Discharge Date Admission Date: July 29, 2020 This time initiate physical therapy monitor his LUCY output anticipate discharge home Saturday. Subjective Patient's back pain is controlled leg symptoms markedly improved. Physical Exam Physical Exam: On exam he is in the chair at the bedside. Is excellent strength testing. Peers comfortable. Results & Data ([facility]) Vital Signs (Past 12 Hours) Vital Signs Temp Pulse Pulse Resp BP Pulse Ox 07/30/20 07:10 93 H 17 95 07/30/20 07:00 36.6 C 76 16 145/81 H 94 07/30/20 03:26 36.7 C 73 16 119/77 96 07/30/20 00:45 87 16 95 07/29/20 23:24 36.7 C 72 16 118/73 95
--- NOTE | 2020-07-30 14:35 | Hospitalist Progress Note ---
Date of Service July 30, 2020 Assessment & Plan (1) Status post lumbar surgery: S/P L4-S1 decompression and fusion by Dr Bruno Post Op blood loss anemia Continue PT/OT Monitor CBC No indication for transfusion currently Wound Care, DVT Px as per Ortho Pain is controlled Leukocytosis Secondary to Dexamethasone Monitor (2) CAD (coronary artery disease): S/P Stent to LAD in 2008 H/O negative stress test 11/2019 -Resume Plavix if OK with Ortho -Continue aspirin, carvedilol, statin (3) COPD (chronic obstructive pulmonary disease): Chronic Wheezing--as per patient Denies SOB, chest tightness Saturating well on room air Continue Nebs, home inhalers (4) HTN (hypertension): Continue carvedilol, losartan (5) GERD (gastroesophageal reflux disease): Continue PPI (6) Tobacco use: Smoking cessation encouraged Nicotine patch DVT Px: SCDs per ortho Code Status Full Code Disposition As per Ortho Admission and Anticipated Discharge Date Admission Date: July 29, 2020 Subjective Patient is seen and examined at bedside Back pain at surgical site is controlled Had PT earlier today No BM this morning Denies chest pain, dyspnea, dizziness, nausea, abd pain Review of Systems Review of Systems: All systems reviewed & are unremarkable except as noted in HPI & below Physical Exam Physical Exam: Physical Exam: Vitals signs as noted above General Appearance:Moderately built and nourished, no apparent distress Head: normocephalic, Atraumatic Eyes: normal inspection, EOMI Neck: supple, Trachea midline Respiratory/Chest: Decreased breath sounds, Scattered wheezes Cardiovascular: S1, S2, No murmur Abdomen/GI:Soft, Non tender, Bowel sounds present Back:surgical site in dressing,+ drain Extremities/Musculoskelatal:normal inspection, no edema Neurologic/Psych:AAOX3, grossly no focal neurological deficits Skin: normal color, warm Results & Data Results & Data ([facility]) Vital Signs (Past 12 Hours) Vital Signs Temp Pulse Resp BP Pulse Ox 07/30/20 13:27 94 H 18 96 07/30/20 07:10 93 H 17 95 07/30/20 07:00 36.6 C 76 16 145/81 H 94 07/30/20 03:26 36.7 C 73 16 119/77 96 Laboratory Results Short CBC 07/30/20 Range/Units 05:30 WBC 14.14 H (4.8-10.8) K/uL Hgb 10.6 L (14.0-18.0) g/dL Hct 31.3 L (42-52) % Plt Count 211 (130-400) K/uL [facility] 07/30/20 05:30 Sodium 137 Potassium 4.6 Chloride 108 H Carbon Dioxide 27 BUN 14 Creatinine 0.91 Glucose 165 H Calcium 8.0 L
[2020-07-30] MEDS: DOCUSATE SODIUM/SENNA 50/8.6MG TAB PO SCH (19:57)
[2020-07-30] MEDS: SIMVASTATIN 80 MG TAB PO SCH (19:58)
[2020-07-31] MEDS: ALBUTEROL 0.083% NEBU SOLN 3 ML VIAL NEB SCH ×2 (00:23→07:33)
[2020-07-31] MEDS: traMADol HCL 50 MG TABLET PO PRN ×2 (00:52→05:55)
[2020-07-31] MEDS: POLYETHYLENE (MIRALAX) 17 GM PACK PO SCH ×2 (05:56→13:06)
[2020-07-31 06:24] LABS: Hematocrit (blood only) 27.7 % (42-52); Hemoglobin 9.3 g/dL (14.0-18.0); Mean Corpuscular Hemoglobin 31.2 pg (25-34); Mean Corpuscular Hgb Conc 33.6 g/dL (32-36); Mean Platelet Volume 9.9 fL (7.4-10.4); Platelet Count 191 K/uL (130-400); RDW Coefficient of Variation 12.1 % (11.5-14.5); Red Blood Count 2.98 M/uL (4.7-6.1); White Blood Count 11.25 K/uL (4.8-10.8)
[2020-07-31 06:52] LABS: BUN Creatinine Ratio 16.8 (10-20); Calcium 8.4 mg/dl (8.5-10.1); Creatinine Clr Calc Pharmacy 81.9 ml/min; Est GFR (African American) 107.7; Est GFR (Non-African American) 92.9; Magnesium 1.9 mg/dl (1.8-2.4); Potassium 4.2 mmol/L (3.5-5.1)
[2020-07-31] MEDS: ASCORBIC ACID 500 MG TAB PO SCH (08:01)
[2020-07-31] MEDS: carvediloL 3.125 MG TAB PO SCH (08:01)
[2020-07-31] MEDS: ASPIRIN 81 MG ECTAB PO SCH (08:02)
[2020-07-31] MEDS: LOSARTAN POTASSIUM 50 MG TAB PO SCH (08:03)
[2020-07-31] MEDS: NICOTINE 7 MG/24 HR TDSY TD SCH (08:03)
[2020-07-31] MEDS: FLUTICASONE/VILANTEROL 100/25MCG 14 PUFFS/INHALER INH SCH (08:04)
[2020-07-31] MEDS: PANTOprazole 40 MG TAB PO SCH (08:04)
[2020-07-31] MEDS ORDERED: DEXAMETHASONE SOD PHOSPHATE 8 MG in SYRINGE 0 ML IV SCH (09:00)
--- NOTE | 2020-07-31 09:54 | Hospitalist Progress Note ---
Date of Service July 31, 2020 Assessment & Plan (1) Status post lumbar surgery: S/P L4-S1 decompression and fusion by Dr Bruno Post Op blood loss anemia - LUCY drain 585ml; EBL 200ml hemoglobin 9.3 today (preop 14.5) Continue PT/OT Monitor CBC No indication for transfusion currently Wound Care, DVT Px as per Ortho Pain is controlled Continue bowel regimen per Ortho, he is passing gas Leukocytosis Secondary to Dexamethasone Improving, decreased to 11.25 today No signs or symptoms of infection (2) CAD (coronary artery disease): S/P Stent to LAD in 2008 H/O negative stress test 11/2019 -Resume Plavix when OK with Ortho -Continue aspirin, carvedilol, statin (3) COPD (chronic obstructive pulmonary disease): Chronic Wheezing--as per patient Denies SOB, chest tightness Saturating well on room air Continue Nebs, home inhalers (4) HTN (hypertension): Continue carvedilol, losartan Blood pressure controlled, 122/66 (5) GERD (gastroesophageal reflux disease): Continue PPI (6) Tobacco use: Smoking cessation encouraged Nicotine patch DVT Px: SCDs per ortho Code Status Full Code Disposition As per Ortho Admission and Anticipated Discharge Date Admission Date: July 29, 2020 Supervising Physician Co-Signing Physician Notes Patient is seen and examined at bedside. States feeling well. + Flatus, Back pain is controlled. Denies any chest pain, shortness of breath, dizziness, nausea, abdominal pain. Back pain at surgical site is controlled. On exam p atient is moderately built and nourished, no apparent distress, normocephalic atraumatic, lungs--decreased breath sounds, scattered wheezes, S1-S2, no murmur, no pedal edema, abdomen soft, nontender, back--surgical site in dressing,+ drain, alert, awake, oriented, grossly no focal deficits. S/P L4-S1 decompression and fusion by Dr Bruno. Postoperative blood loss anemia. Currently no indication for blood transfusion. Pain control, PT OT, DVT prophylaxis, local wound care as per Ortho. Continue bowel regimen to prevent constipation. Monitor CBC daily. COPD, tobacco use disorder. Counseled to quit tobacco use. Respiratory status seems to be at baseline. Continue Nebs/Inhalers. Resume Plavix when appropriate. I personally reviewed the record. Patient is interviewed and examined at bedside. Patient's care is coordinated with Opal Velez PA-C. Please refer to the documentation above for details of patient's presentation and for discussion of other issues. Subjective Patient was seen and examined in room 384-1. Follow-up lumbar procedure and hypertension. Patient is sitting up at bedside and offers no acute concerns. He states back pain is minimal, 3/10. Physical therapy has been going well and he has already ambulated this morning. He feels his abdomen is a bit distended but he is passing gas. No BM yet. Tolerating diet okay but overall decreased appetite. Denies fever, chills, sweats, lightheadedness, dizziness, chest pain, shortness of breath, nausea, vomiting, abdominal pain. He is urinating without dif ficulty, mild dysuria secondary to catheter. He denies hematuria. He is hoping to be discharged today [facility]. Review of Systems Review of Systems: All systems reviewed & are unremarkable except as noted in HPI & below Physical Exam Physical Exam: Gen: WD/WN, NAD, male, sitting up at bedside A&O x3 HEENT: Normocephalic, atraumatic, conjunctivae moist, sclerae anicteric, mucous membranes moist. Lung: Clear to Auscultation bilaterally, initial wheeze left upper lobe that resolved with coughing, no wheezes/rales/rhonchi Heart: Regular rate, regular rhythm, no murmurs, rubs, or gallops Abdomen: Soft, NT, ND +BS x 4 Extremities: No edema, lumbar dressing CDI, LUCY drain intact with minimal serosanguineous drainage Skin: Warm, no rash, negative turgor. Results & Data Results & Data ([facility]) Vital Signs (Past 12 Hours) Vital Signs Temp Pulse Pulse Resp BP Pulse Ox 07/31/20 07:57 37.0 C 83 14 120/66 97 07/31/20 07:33 87 17 96 07/31/20 00:24 87 16 95 07/30/20 22:56 36.7 C 84 16 120/69 94 Laboratory Results Short CBC 07/31/20 Range/Units 05:30 WBC 11.25 H (4.8-10.8) K/uL Hgb 9.3 L (14.0-18.0) g/dL Hct 27.7 L (42-52) % Plt Count 191 (130-400) K/uL BMP 07/31/20 05:30 Sodium 138 Potassium 4.2 Chloride 106 Carbon Dioxide 28 BUN 13 Creatinine 0.75 Glucose 115 H Calcium 8.4 L Medications Administered Acetaminophen (Acetaminophen 500 Mg Tab) 1,000 mg PO Q8H PRN PRN Reason: MILD Pain Scale 1,2,3 & Pre PT Stop: 08/28/20 11:29 Last Admin: 07/30/20 17:04 Dose: 1,000 mg Documented by: [id number] Admin: 07/30/20 07:41 Dose: 1,000 mg Documented by: [id number] Albuterol (Albuterol 0.083% Nebu Soln 3 Ml Vial) 2.5 mg NEB Q6R ANTHONY Stop: 08/28/20 18:59 Last Admin: 07/31/20 07:33 Dose: 2.5 mg Documented by: [id number] Admin: 07/31/20 00:23 Dose: 2.5 mg Documented by: [id number] Admin: 07/30/20 19:06 Dose: 2.5 mg Documented by: [id number] Admin: 07/30/20 13:27 Dose: 2.5 mg Documented by: [id number] Admin: 07/30/20 11:35 Dose: Not Given Documented by: [id number] Admin: 07/30/20 07:10 Dose: 2.5 mg Documented by: [id number] Admin: 07/30/20 00:45 Dose: 2.5 mg Documented by: [id number] Admin: 07/29/20 18:26 Dose: Not Given Documented by: [id number] Ascorbic Acid (Ascorbic Acid 500 Mg Tab) 500 mg PO BID ANTHONY Stop: 08/28/20 20:59 Last Admin: 07/31/20 08:01 Dose: 500 mg Documented by: [id number] Admin: 07/30/20 19:58 Dose: 500 mg Documented by: [id number] Admin: 07/30/20 07:57 Dose: 500 mg Documented by: [id number] Admin: 07/29/20 20:27 Dose: 500 mg Documented by: [id number] Aspirin (Aspirin 81 Mg Ectab) 81 mg PO QAM ANTHONY Stop: 08/29/20 08:59 Last Admin: 07/31/20 08:02 Dose: 81 mg Documented by: [id number] Admin: 07/30/20 07:41 Dose: 81 mg Documented by: [id number] Carvedilol (Carvedilol 3.125 Mg Tab) 3.125 mg PO BID [facility] Stop: 08/28/20 20:59 Last Admin: 07/31/20 08:01 Dose: 3.125 mg Documented by: [id number] Admin: 07/30/20 19:58 Dose: 3.125 mg Documented by: [id number] Admin: 07/30/20 07:57 Dose: 3.125 mg Documented by: [id number] Admin: 07/29/20 20:27 Dose: 3.125 mg Documented by: [id number] Fluticasone/Vilanterol (Fluticasone/Vilanterol 100/25mcg 14 Puffs/Inhaler) 1 puffs INH DAILY [facility]; Protocol Stop: 08/29/20 08:59 Last Admin: 07/31/20 08:04 Dose: Not Given Documented by: [id number] Admin: 07/30/20 07:58 Dose: Not Given Documented by: [id number] Dexamethasone Sodium Phosphate (8 mg/ Syringe) 2 mls @ 1 mls/min IV DAILY [facility] Stop: 08/30/20 08:59 Last Admin: 07/31/20 07:58 Dose: 1 mls/min Documented by: [id number] Losartan Potassium (Losartan Potassium 50 Mg Tab) 100 mg PO QAM [facility] Stop: 08/29/20 08:59 Last Admin: 07/31/20 08:03 Dose: 100 mg Documented by: [id number] Admin: 07/30/20 07:58 Dose: 100 mg Documented by: [id number] Miscellaneous (Remove Nicoderm Patch) 1 ea N/A DAILY@0859 [facility] Stop: 08/29/20 08:58 Last Admin: 07/31/20 08:04 Dose: 1 ea Documented by: [id number] Admin: 07/30/20 08:36 Dose: 1 ea Documented by: [id number] Nicotine (Nicotine 7 Mg/24 Hr Tdsy) 7 mg TD QAM [facility] Stop: 08/28/20 14:29 Last Admin: 07/31/20 08:03 Dose: 7 mg Documented by: [id number] Admin: 07/30/20 07:41 Dose: 7 mg Documented by: [id number] Admin: 07/29/20 15:56 Dose: 7 mg Documented by: [id number] Oxycodone HCl (Oxycodone Hcl Ir 5 Mg Tab (Immediate Release)) 5 - 10 mg PO Q4H PRN PRN Reason: Moderate-Severe Pain & Pre PT Stop: 08/12/20 11:29 Last Admin: 07/29/20 19:38 Dose: 10 mg Documented by: [id number] Pantoprazole Sodium (Pantoprazole 40 Mg Tab) 40 mg PO QAM [facility] Stop: 08/29/20 08:59 Last Admin: 07/31/20 08:04 Dose: 40 mg Documented by: [id number] Admin: 07/30/20 07:42 Dose: 40 mg Documented by: [id number] Polyethylene Glycol (Polyethylene (Miralax) 17 Gm Pack) 17 gm PO Q6 [facility] Stop: 08/29/20 05:59 Last Admin: 07/31/20 05:56 Dose: 17 gm Documented by: [id number] Admin: 07/30/20 19:58 Dose: 17 gm Documented by: [id number] Admin: 07/30/20 17:59 Dose: Not Given Documented by: [id number] Admin: 07/30/20 13:00 Dose: 17 gm Documented by: [id number] Admin: 07/30/20 05:28 Dose: 17 gm Documented by: [id number] Senna/Docusate Sodium (Docusate Sodium/Senna 50/8.6mg Tab) 2 tab PO HS [facility] Stop: 08/28/20 20:59 Last Admin: 07/30/20 19:57 Dose: 2 tab Documented by: [id number] Admin: 07/29/20 20:27 Dose: 2 tab Documented by: [id number] Simvastatin (Simvastatin 80 Mg Tab) 80 mg PO PM [facility] Stop: 08/28/20 20:59 Last Admin: 07/30/20 19:58 Dose: 80 mg Documented by: [id number] Admin: 07/29/20 20:27 Dose: 80 mg Documented by: [id number] Tramadol HCl (Tramadol Hcl 50 Mg Tablet) 50 - 100 mg PO Q4H PRN PRN Reason: Moderate-Severe Pain & Pre PT Stop: 08/28/20 11:29 Last Admin: 07/31/20 05:55 Dose: 50 mg Documented by: [id number] Admin: 07/31/20 00:52 Dose: 50 mg Documented by: [id number] Admin: 07/30/20 05:27 Dose: 50 mg Documented by: [id number] Admin: 07/29/20 22:31 Dose: 100 mg Documented by: [id number] Discontinued Medications Acetaminophen (Acetaminophen 500 Mg Tab) 1,000 mg PO PREOP ANTHONY Stop: 07/29/20 18:00 Last Admin: 07/29/20 06:48 Dose: 1,000 mg Documented by: [id number] Bacitracin (Bacitracin Inj 50,000 Unit Vial) Confirm Administered Dose 50,000 units .ROUTE .STK-MED ONE Stop: 07/29/20 07:12 Last Admin: 07/29/20 08:22 Dose: 50,000 units Documented by: [id number] Bupivacaine HCl/Epinephrine Bitart (Bupivacaine/Epinephrine 0.5% Mpf 1:200,000 30 Ml Vial) Confirm Administered Dose 30 ml .ROUTE .STK-MED ONE Stop: 07/29/20 07:12 Last Admin: 07/29/20 08:22 Dose: 30 ml Documented by: [id number] Celecoxib (Celebrex 200 Mg Cap) 200 mg PO PREOP ANTHONY Stop: 07/29/20 18:00 Last Admin: 07/29/20 06:49 Dose: 200 mg Documented by: [id number] Fentanyl Citrate (Fentanyl Citrate 100 Mcg/2 Ml Vial) 50 mcg IV Q5M PRN PRN Reason: PACU Use Only-Pain Stop: 07/29/20 15:05 Last Admin: 07/29/20 11:02 Dose: 50 mcg Documented by: [id number] Gabapentin (Gabapentin 300 Mg Cap) 300 mg PO PREOP ANTHONY Stop: 07/29/20 18:00 Last Admin: 07/29/20 06:49 Dose: 300 mg Documented by: [id number] Lactated Ringer's (Lr) 1,000 mls @ 15 mls/hr IV .Q24H ANTHONY Stop: 07/30/20 05:59 Last Infusion: 07/29/20 07:39 Dose: 0 mls/hr Documented by: [id number] Admin: 07/29/20 06:47 Dose: 15 mls/hr Documented by: [id number] Cefazolin Sodium (Ancef 1000mg) 1,000 mg in 7.5 mls @ 2.5 mls/min IV PREOP ANTHONY; Protocol Stop: 07/29/20 18:00 Last Admin: 07/29/20 07:39 Dose: 2.5 mls/min Documented by: [id number] Sodium Chloride (Nss 1000ml) 1,000 mls @ 100 mls/hr IV .Q10H ANTHONY Stop: 08/28/20 11:59 Last Infusion: 07/30/20 05:56 Dose: 0 mls/hr Documented by: [id number] Admin: 07/29/20 21:55 Dose: 100 mls/hr Documented by: [id number] Infusion: 07/29/20 21:55 Dose: 100 mls/hr Documented by: [id number] Admin: 07/29/20 11:58 Dose: 100 mls/hr Documented by: [id number] Acetaminophen (Ofirmev) 1,000 mg in 100 mls @ 400 mls/hr IV Q8H PRN PRN Reason: MILD Pain Rating 1,2,3 Stop: 07/30/20 11:29 Last Infusion: 07/29/20 15:03 Dose: 0 mls/hr Documented by: [id number] Admin: 07/29/20 14:37 Dose: 400 mls/hr Documented by: [id number] Cefazolin Sodium (Ancef 2000mg) 2,000 mg in 15 mls @ 3.75 mls/min IV Q8H ANTHONY; Protocol Stop: 07/29/20 23:03 Last Admin: 07/29/20 21:55 Dose: 3.75 mls/min Documented by: [id number] Admin: 07/29/20 15:56 Dose: 3.75 mls/min Documented by: [id number] Miscellaneous ( Floseal Hemostatic Matrix 10ml) 10 ml TOP ONCE ONE Stop: 07/29/20 10:08 Last Admin: 07/29/20 10:07 Dose: 25 ml Documented by: [id number] Ondansetron HCl (Ondansetron Inj 2 Mg/Ml 2 Ml Vial) 4 mg IV ONCE PRN PRN Reason: PACU Use Only-Nausea/Vomiting Stop: 07/29/20 15:05 Last Admin: 07/29/20 10:59 Dose: 4 mg Documented by: [id number]
--- NOTE | 2020-07-31 11:15 | Discharge Summary ---
Date of Service July 31, 2020 Admission HPI Per Admitting Provider This is a 70-year-old male presents with chronic persistent back and leg pain. After failing course of nonoperative care is here for surgical invention. Principal Diagnosis Lumbar spinal stenosis with neurogenic medication Discharge Data Allergies Allergy/AdvReac Type Severity Reaction Status Date / Time No Known Allergies Allergy Verified 07/29/20 06:41 Consultations 07/29/20 11:30 Consult Case Management - Discharge Planning Routine Consult Hospitalist Routine Procedures Performed Operation Date: 07/29/20 07:45 Actual Procedures p L4-S1 Decompression and Fusion with bone morphogenic protein, interbody L4-5 and L5-S1, Spinal Cord Monitoring(Not Applicable) - Melecio Bruno DO Ordered Studies 07/29/20 07:45 FL fluoroscopy <1hr Routine FL lumbar spine 2-3V Routine Hospital Course (1) Neurogenic claudication due to lumbar spinal stenosis: Patient with multilevel lumbar compression fusion tolerates well second orthopedic floor postoperative. Postop day 1 is up and ambulating progressive postop day #2. LUCY drain decreasing appropriately. Excellent strength testing. Subsequently discharged home. Discharge orders and instructions found in the chart for further review. Total Time Total Time Spent Total Time Spent (In Minutes): 20 minutes Discharge Plan Discharge Items Patient Disposition: Home - Self-Care Reason For Visit: Thoracolumbar and Lumbosacral Disc Disorder Discharge Diagnosis: Lumbar spinal stenosis Activity: As commented below Non-emergency contact: Primary Care Provider Call non-emergency contact if: you have any medication questions Follow-up/Referrals: Lemuel Mcguire DO [Primary Care Provider] - Diet: Regular Addtl Attending Provider Instructions: ACTIVITY RECOMMENDATIONS: SELF CARE INSTRUCTIONS AFTER THORACIC/LUMBAR FUSIONS 1. You may walk to your tolerance. It is good exercise for your legs and back. Expect some back and intermittent leg aches and pains. 2. You may perform "counter-top" level activities (make a sandwich, shena with a project, etc.). 3. No bending or lifting of more than 10 pounds or back twisting of any nature (roll like a log when turning in bed). 4. You may ride in a car for 20-30 minutes at a time. No driving until after your first visit with your doctor. 5. Frequent changes of position and restricting sitting to 30 minutes at a time will help limit the amount of back spasms and stiffness you may experience. 6. You may discontinue the use of ambulatory aids (cane, crutches, etc.) once your strength and confidence allow. 7. 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 Do not take a tub bath, sit in a hot tub or go into a swimming pool until after your first recheck in the office. SPECIAL CARE INSTRUCTIONS: VERY IMPORTANT TO READ AND REVIEW A. Your surgical incision has been closed with a cosmetic suture under the skin that will dissolve in about 6 weeks. In 14 days, you can use a pair of clean scissors and cut the suture that is left outside of the skin at the ends of your incision. 1. The small skin tapes can be removed 7 days after surgery if they have not fallen off by that point. 2. You may keep the wound open to air as much as possible to promote healing after post-op day number 5 unless told otherwise by your doctor. 3. If you think the wound looks like it is becoming infected (redness or worsening drainage) and/or you are experiencing fever, chill or worsening back pain and muscle spasms, contact the office so that we may evaluate you as soon as possible. B. Complications are uncommon, but please contact us if you have any signs or symptoms of: 1. wound infection (fever higher than 102.5 degrees F, redness, separation of wound, drainage, or increasing pain from the incision) 2. blood clots in legs (pain, swelling, redness and warmth in legs) 3. urinary tract infection (fever higher than 102.5 degrees F, burning upon urination or increased frequency of urination) 4. nerve problems (inability to walk on your toes or heels, numbness, loss of bowel or bladder control) 5. any other symptoms that concern you C. Please call the office at if you have any concerns or questions about your operation or recovery. D. No smoking! Smoking drastically decreases the chance of a solid fusion. E. Do not take any anti-inflammatory medications (Indocin, Advil, Motrin, Aspirin, Naprosyn, etc.) as these may inhibit the chance of a solid fusion. Tylenol is okay to take for pain. MANAGING PAIN AFTER SPINAL SURGERY 1. Narcotic medication is intended for short-term use and will be provided for surgical pain. Surgical pain usually lasts for a period of 4-6 weeks. Narcotic medication includes Percocet, Vicodin, Darvocet, Tylenol #3 or Lortab. 2. Longer-term pain is more appropriately treated with non-narcotic medication such as Tylenol ES. 3. Muscle spasm is not appropriately treated with narcotics. Muscle relaxers such as Soma, Flexeril or Skelaxin can be used along with Tylenol ES. 4. Remember that we all live with some "aches and pains". This is not unusual or uncommon after an injury or as we get older. a. Back pain is expected and may include muscle spasms for 4 to 6 weeks after surgery. The pain should gradually improve. If the pain worsens for no apparent reason, please contact the office. b. Intermittent leg pain may also be experienced and should not be concerned about unless it worsens for no apparent reason. If so, please contact the office. 5. We will provide appropriate medication within the normal guidelines of their prescribed use. We will also be very cautious and aware of potential abuse and extended duration of patients' medication needs. a. Pain medications are for your comfort and to assist with sleep and rest so that the tissue can heal. They are not provided in order to return to normal activity and should not be used through the day. To do so or worsening pain at night can result from ongoing tissue damage and development of tolerance to the prescribed medicine. 6. Please allow 2-3 days to process refills. Prescriptions will not be mailed but must be picked up at the office. FOLLOW UP VISIT: Keep your scheduled follow-up appointment. Any questions, please call the office at . Pending Studies at Discharge: No Stand-Alone Forms: My [facility] SnapLayout, Smoking Cessation Medications and DC Order Prescriptions: New tramadol 50 mg tablet 50 mg PO Q6H PRN (Reason: pain, moderate) Qty: 30 RF: 0 oxycodone 5 mg tablet 5 mg PO Q6H PRN (Reason: pain, severe) Qty: 20 RF: 0 Continued albuterol sulfate 0.63 mg/3 mL Solution For Nebulization 0.63 mg INHALATION Q4H PRN (Reason: sob) RF: 0 clopidogrel [Plavix] 75 mg Tablet 75 mg PO QAM RF: 0 simvastatin 80 mg Tablet 80 mg PO PM RF: 0 aspirin 81 mg Tablet,Delayed Release (Dr/Ec) 81 mg PO QAM RF: 0 carvedilol 3.125 mg Tablet 3.125 mg PO BID RF: 0 pantoprazole 20 mg Tablet,Delayed Release (Dr/Ec) 20 mg PO QAM RF: 0 ascorbic acid (vitamin C) [Vitamin C] 500 mg Tablet 500 mg PO BID RF: 0 fluticasone propion-salmeterol [Wixela Inhub] 500-50 mcg/dose Blister With Device 1 inh INHALATION BID RF: 0 losartan 100 mg Tablet 100 mg PO QAM RF: 0 Discharge Orders: Discharge Order (Routine); Ordered 07/31/20 Ordered By: Melecio Bruno Admission Data Admit Date/Time: 07/29/20 10:49 Attending Provider: Melecio Bruno Admit Provider: Melecio Bruno Primary Care Provider: Lemuel Mcguire Other Providers: Jewel Pollard
== END 2020-07-31 13:07 | disposition home or self-care (01) | DRG 454 ==
LOC: ASU 06:11 → 3N 10:49